=== PATIENT | female | born 1955 | race Caucasian/White ===

== ENCOUNTER 2019-03-17 05:33 | Observation (INO) ==
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
[~2019-03-17 05:33] MED LIST: CEFAZOLIN 1000MG 1,000 MG/7.5 ML SYR IV SCH; LR 15ML/HR IV SCH
[2019-03-17] MEDS ORDERED: LR 15ML/HR IV SCH (06:00)
[2019-03-17] MEDS ORDERED: LACTATED RINGER'S 1,000 ML IV SCH ×2 (06:00→15:00)
[2019-03-17] MEDS ORDERED: CEFAZOLIN 1000MG 1,000 MG/7.5 ML SYR IV SCH (06:00)
[2019-03-17 06:07] LABS: Hematocrit (blood only) 38.7 % (37-47); Mean Corpuscular Volume 91.5 fL (80-100); Mean Platelet Volume 10.9 fL (7.4-10.4); Platelet Count 253 K/uL (130-400); RDW Coefficient of Variation 14.1 % (11.5-14.5); RDW Standard Deviation 46.3 fL (36.4-46.3); Red Blood Count 4.23 M/uL (4.2-5.4); White Blood Count 8.38 K/uL (4.8-10.8)
[2019-03-17 06:12] LABS: Mean Corpuscular Hgb Conc 33.6 g/dL (32-36)
[2019-03-17 06:25] LABS: BUN Creatinine Ratio 27.6 (10-20); Calcium 8.6 mg/dl (8.5-10.1); Creatinine Clr Calc Pharmacy 55.3 ml/min; Est GFR (African American) 69.9; Est GFR (Non-African American) 60.3; Magnesium 1.4 mg/dl (1.8-2.4)
[2019-03-17] MEDS ORDERED: BUPIVACAINE/EPINEPHRINE 0.5% 1:200,000 1.8 ML CARP ONE (06:53)
[2019-03-17] MEDS ORDERED: fentaNYL citrate 100 MCG/2 ML VIAL ONE (06:58)
[2019-03-17] MEDS ORDERED: MIDAZOLAM HCL 1 MG/ML 2ML VIAL ONE (06:58)
--- NOTE | 2019-03-17 07:03 | History & Physical Bridge Note ---
Date of Service March 17, 2019 History & Physical Bridge Note I have examined the patient, reviewed the History & Physical and in the interval since the performance of the History & Physical I have noted the following changes of clinical significance: no changes noted As expected her Mag and K are low. We will be taking an EKG pre-op to obtain a baseline. If baseline is accepable to anesthesia we will plan the surgery. Discussed home pain meds get N/V with oral pain meds on chronic morphine for pain control.
[2019-03-17] MEDS ORDERED: ATROPINE SULFATE 0.1 MG/ML 10ML SYR IV PRN (07:06)
[2019-03-17] MEDS ORDERED: ePHEDrine sulfate 50 MG/ML AMP IV PRN (07:06)
[2019-03-17] MEDS ORDERED: ONDANSETRON INJ 2 MG/ML 2 ML VIAL IV PRN (07:06)
[2019-03-17] MEDS ORDERED: CHLORHEXIDINE GLUCONATE 0.12% 480 ML ONE (07:29)
[2019-03-17] MEDS ORDERED: GLYCOPYRROLATE 0.2 MG/ML VIAL ONE (07:53)
[2019-03-17] MEDS ORDERED: ROCURONIUM BROMIDE 10 MG/ML 5 ML VIAL ONE (07:53)
[2019-03-17] MEDS ORDERED: DEXAMETHASONE SOD INJ 4 MG/ML VIAL ONE (07:53)
[2019-03-17] MEDS ORDERED: ONDANSETRON INJ 2 MG/ML 2 ML VIAL ONE (07:53)
[2019-03-17] MEDS ORDERED: NEOSTIGMINE METHYLSULFATE 5 MG/5 ML SYR ONE (07:53)
--- NOTE | 2019-03-17 09:06 | Post Operative Brief Note ---
Immediate Post Op Note v1 Date of Surgery March 17, 2019 Pre & Post Diagnosis Operation Date: 03/17/19 07:15 Pre-Op Diagnosis: Osteoporosis Severe, 15 Infected Teeth Oral sinus fistula upper right side Post-Op Diagnosis: Osteoporosis Severe, 15 Infected Teeth oral sinus fistula upper right side Procedure Operation Date: 03/17/19 07:15 Actual Procedures p Removal of 15 Infected Teeth, Alveoloplasty Closure of large oral sinus fistula and opening upper right (Not Applicable) - Juventino Barnes DMD Surgeon Juventino Barnes DMD Insurance Agent none Estimated Blood Loss 15 Findings Consistent with Post-Op Diagnosis
[2019-03-17] MEDS ORDERED: MoRPHine SULFATE 4 MG/ML 1 ML CARP\\VIAL IV PRN (09:13)
[2019-03-17] MEDS ORDERED: ACETAMINOPHEN 325 MG TAB PO PRN (09:13)
[2019-03-17] MEDS ORDERED: ONDANSETRON 4 MG TAB PO PRN (09:20)
[2019-03-17] MEDS ORDERED: IBUPROFEN 800 MG TAB PO PRN (09:20)
[2019-03-17] MEDS ORDERED: MoRPHine SULFATE IR 15 MG TAB (IMMEDIATE RELEASE) PO PRN (09:20)
[2019-03-17] MEDS: fentaNYL citrate 100 MCG/2 ML VIAL IV PRN ×4 (09:25→10:00)
[2019-03-17] MEDS ORDERED: fentaNYL citrate 100 MCG/2 ML VIAL IV STA (10:10)
--- NOTE | 2019-03-17 10:25 | Anesthesiology Progress Note ---
Date of Service March 17, 2019 Anesthesia Post Procedure Vital Signs Vital Signs: Temp Pulse Pulse Resp BP BP Pulse Ox 03/17/19 10:15 49 L 12 114/73 97 03/17/19 10:05 49 L 12 148/81 H 99 03/17/19 09:55 47 L 12 144/72 H 99 03/17/19 09:45 50 L 16 161/87 H 98 03/17/19 09:35 52 L 16 171/81 H 100 03/17/19 09:25 57 L 15 156/87 H 100 03/17/19 09:15 97.5 F L 81 13 158/79 H 99 03/17/19 06:15 97.7 F 59 L 18 150/89 H 99 Pain Intensity Mouth: Pain Intensity: 4 Transfer of Care Handoff Completed per policy Notes Mental Status: alert / awake / arousable and participated in evaluation Patient Amnestic to Procedure: Yes Nausea / Vomiting: adequately controlled Pain: adequately controlled Airway Patency, RR, SpO2: stable & adequate BP & HR: stable & adequate Hydration State: stable & adequate Anesthetic Complications: no major complications apparent and Pt Satisfied with anesthetic care
[2019-03-17] MEDS ORDERED: MoRPHine SULFATE 2 MG/ML CARP ONE (11:03)
[2019-03-17] MEDS: MoRPHine SULFATE 2 MG/ML CARP IV PRN ×2 (11:04→15:03)
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
[2019-03-17] MEDS ORDERED: HYDROmorphone INJ 1 MG/ML SYRINGE IV PRN (15:06)
[2019-03-17] MEDS ORDERED: HydrALAZINE HCL 20 MG/ML VIAL IV PRN (15:07)
[2019-03-17] MEDS: MAGNESIUM CHLORIDE 64MG DELAYED REL TAB PO SCH ×2 (17:47→21:27)
[2019-03-17] MEDS: KETOROLAC 30 MG/ML VIAL IV PRN (17:56)
[2019-03-17] MEDS: D5W AND 1/2NSS + 20MEQ KCL 20 MEQ/1,000 ML BAG IV SCH (17:57)
[2019-03-17] MEDS: CLINDAMYCIN 900 MG in DEXTROSE 5% 100 ML IV SCH (17:57)
[2019-03-17] MEDS: ONDANSETRON INJ 2 MG/ML 2 ML VIAL IV PRN ×2 (17:57→21:37)
[2019-03-17] MEDS: CEFAZOLIN 1000MG 1,000 MG/7.5 ML SYR IV SCH (17:58)
[2019-03-17] MEDS: POTASSIUM CHLORIDE / WTR 10 MEQ/100 ML PLCT IV SCH ×4 (17:58→23:42)
[2019-03-17] MEDS ORDERED: BusPIRone 15 MG TAB PO SCH (18:00)
[2019-03-17] MEDS: MAGNESIUM SULFATE / D5W 1 GM/100 ML BAG IV SCH ×2 (18:44→20:02)
[2019-03-17] MEDS: OXYCODONE/ACETAMINOPHEN 5mg/325mg TAB PO PRN (19:27)
[2019-03-17] MEDS: MoRPHine SULFATE CR 15 MG TABCR PO SCH (21:26)
[2019-03-17] MEDS: cloNIDine HCl 0.1 MG TAB PO SCH (21:26)
[2019-03-17] MEDS: BUSPIRONE HCL 7.5 MG TAB PO SCH (21:26)
[2019-03-17] MEDS: ROPINIROLE HCL 1 MG TABLET PO SCH (21:26)
[2019-03-17] MEDS: SUCRALFATE 1 GM TAB PO SCH (21:26)
[2019-03-17] MEDS: TOPIRAMATE 100 MG TAB PO SCH (21:27)
[2019-03-17] MEDS: SERTRALINE HCL 100 MG TABLET PO SCH (21:27)
[2019-03-17] MEDS: MONTELUKAST SODIUM 10 MG TABLET PO SCH (21:27)
[2019-03-17] MEDS: SIMVASTATIN 20 MG TAB PO SCH (21:27)
[2019-03-18] MEDS: CLINDAMYCIN 900 MG in DEXTROSE 5% 100 ML IV SCH ×3 (01:50→17:26)
[2019-03-18] MEDS: CEFAZOLIN 1000MG 1,000 MG/7.5 ML SYR IV SCH ×2 (01:50→09:28)
[2019-03-18] MEDS ORDERED: Nursing to Pharmacy Communication ONE (03:21)
[2019-03-18] MEDS: KETOROLAC 30 MG/ML VIAL IV PRN ×3 (05:00→20:07)
[2019-03-18] MEDS: OXYCODONE/ACETAMINOPHEN 5mg/325mg TAB PO PRN ×3 (07:39→23:55)
[2019-03-18 08:26] LABS: Hematocrit (blood only) 32.1 % (37-47); Hemoglobin 10.6 g/dL (12.0-16.0); Mean Corpuscular Volume 92.2 fL (80-100); Platelet Count 186 K/uL (130-400); RDW Coefficient of Variation 14.5 % (11.5-14.5); RDW Standard Deviation 49.1 fL (36.4-46.3); Red Blood Count 3.48 M/uL (4.2-5.4); White Blood Count 8.16 K/uL (4.8-10.8)
[2019-03-18 09:00] LABS: Albumin Level 2.9 gm/dl (3.4-5.0); Calcium 7.6 mg/dl (8.5-10.1); Creatinine Clr Calc Pharmacy 57.2 ml/min; Est GFR (African American) 74.4; Est GFR (Non-African American) 64.2; Potassium 3.1 mmol/L (3.5-5.1)
[2019-03-18 09:03] LABS: Bilirubin,Total 0.2 mg/dl (0.2-1); Globulin 2.8 gm/dl (2.5-4.0); Total Protein 5.7 gm/dl (6.4-8.2)
[2019-03-18] MEDS: ASPIRIN 81 MG ECTAB PO SCH (09:36)
[2019-03-18] MEDS: cloNIDine HCl 0.1 MG TAB PO SCH ×2 (09:37→20:37)
[2019-03-18] MEDS: SUCRALFATE 1 GM TAB PO SCH ×2 (09:37→20:36)
[2019-03-18] MEDS: BUSPIRONE HCL 7.5 MG TAB PO SCH ×3 (09:37→20:36)
[2019-03-18] MEDS: MAGNESIUM CHLORIDE 64MG DELAYED REL TAB PO SCH ×4 (09:38→20:37)
[2019-03-18] MEDS: TOPIRAMATE 100 MG TAB PO SCH ×2 (09:38→20:38)
[2019-03-18] MEDS: SERTRALINE HCL 100 MG TABLET PO SCH ×2 (09:39→20:39)
[2019-03-18] MEDS: MoRPHine SULFATE CR 15 MG TABCR PO SCH ×2 (09:43→20:41)
[2019-03-18] MEDS ORDERED: POTASSIUM CHLORIDE 20 MEQ TABCR PO STA (09:44)
[2019-03-18] MEDS: D5W AND 1/2NSS + 20MEQ KCL 20 MEQ/1,000 ML BAG IV SCH ×2 (09:50→20:34)
[2019-03-18] MEDS: ONDANSETRON INJ 2 MG/ML 2 ML VIAL IV PRN ×2 (09:55→20:10)
--- NOTE | 2019-03-18 11:11 | Surgery Progress Note ---
Date of Service March 18, 2019 Subjective Post op day # 1 doing very well today, no bleeding noted, minimal swelling, PO improved, pain controlled Reviewed home care and diet. RTC March 27 2019 for follow up We decided to keep for 23 hrs due to her pain management and electrolyte imblance. PO now improved, still somewhat sleepy Over all nice progress OK for D/C today Results & Data Vital Signs (Past 12 Hours) Vital Signs Temp Pulse Resp BP Pulse Ox 03/18/19 07:18 37.3 C 61 16 100/62 96 03/18/19 03:35 37.5 C 68 16 99/63 L 96 03/17/19 23:19 77 94/59 L
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
[2019-03-18] MEDS ORDERED: MAGNESIUM OXIDE 400 MG TAB PO ONE (12:04)
[2019-03-18] MEDS: ROPINIROLE HCL 1 MG TABLET PO SCH (20:37)
[2019-03-18] MEDS: MONTELUKAST SODIUM 10 MG TABLET PO SCH (20:37)
[2019-03-18] MEDS: SIMVASTATIN 20 MG TAB PO SCH (20:39)
[2019-03-19] MEDS: CLINDAMYCIN 900 MG in DEXTROSE 5% 100 ML IV SCH ×2 (01:49→08:54)
[2019-03-19] MEDS: KETOROLAC 30 MG/ML VIAL IV PRN ×2 (03:54→17:06)
[2019-03-19] MEDS: D5W AND 1/2NSS + 20MEQ KCL 20 MEQ/1,000 ML BAG IV SCH (07:04)
[2019-03-19] MEDS: SUCRALFATE 1 GM TAB PO SCH (07:06)
[2019-03-19] MEDS: cloNIDine HCl 0.1 MG TAB PO SCH (07:06)
[2019-03-19] MEDS: SERTRALINE HCL 100 MG TABLET PO SCH (07:06)
[2019-03-19] MEDS: BUSPIRONE HCL 7.5 MG TAB PO SCH ×2 (07:06→12:54)
[2019-03-19] MEDS: ASPIRIN 81 MG ECTAB PO SCH (07:06)
[2019-03-19] MEDS: MAGNESIUM CHLORIDE 64MG DELAYED REL TAB PO SCH ×2 (07:07→12:54)
[2019-03-19] MEDS: TOPIRAMATE 100 MG TAB PO SCH (07:07)
[2019-03-19 07:09] LABS: Hematocrit (blood only) 30.7 % (37-47); Hemoglobin 9.9 g/dL (12.0-16.0); Mean Corpuscular Hgb Conc 32.2 g/dL (32-36); Mean Corpuscular Volume 93.3 fL (80-100); Mean Platelet Volume 10.5 fL (7.4-10.4); Platelet Count 165 K/uL (130-400); RDW Coefficient of Variation 14.6 % (11.5-14.5); RDW Standard Deviation 49.9 fL (36.4-46.3); Red Blood Count 3.29 M/uL (4.2-5.4); White Blood Count 6.72 K/uL (4.8-10.8)
[2019-03-19] MEDS: MoRPHine SULFATE CR 15 MG TABCR PO SCH (07:09)
[2019-03-19 07:54] LABS: Albumin Globulin Ratio 0.9 (0.9-2); Albumin Level 2.6 gm/dl (3.4-5.0); BUN Creatinine Ratio 11.7 (10-20); Bilirubin,Total 0.2 mg/dl (0.2-1); Calcium 7.8 mg/dl (8.5-10.1); Creatinine Clr Calc Pharmacy 67.9 ml/min; Est GFR (African American) 91.6; Total Protein 5.6 gm/dl (6.4-8.2)
[2019-03-19] MEDS: OXYCODONE/ACETAMINOPHEN 5mg/325mg TAB PO PRN ×2 (08:06→15:31)
[2019-03-19] MEDS ORDERED: POTASSIUM CHLORIDE 20 MEQ TABCR PO ONE (09:40)
--- NOTE | 2019-03-19 10:35 | Operative Report ---
DATE OF OPERATION: 03/17/2019 ADMITTING DIAGNOSES: Chronically inflamed lower anterior segment secondary to chronic osteomyelitis and severe periodontally involved teeth as well as a dental neglect with multiple fractured and abscessed teeth. POSTOPERATIVE DIAGNOSES: Chronically inflamed lower anterior segment secondary to chronic osteomyelitis and severe periodontally involved teeth as well as a dental neglect with multiple fractured and abscessed teeth. OPERATION: Surgical removal of 15 carious teeth of the upper and lower jaw as well as debridement of exposed infected bone of lower anterior area with a chronic draining osteomyelitis. DESCRIPTION OF PROCEDURE: After this patient was cleared to undergo a general anesthetic, she was brought down to the Operating Room and placed under general anesthesia via nasotracheal intubation. After adequate anesthesia was obtained, the patient was prepped and draped in the usual manner for the removal of teeth and for doing debridement of an infected area of the jaw. At this time, a time-out was taken to ensure that we had the appropriate patient, that the appropriate equipment and antibiotics were given and that the procedures were confirmed. Once everything was confirmed, the procedure began. Facial dressings were applied around the area. Sterile drapes were placed. The operation now began. I gave local anesthesia to the maxilla both on the palatal and facial side as well as bilateral alveolar blocks. This was done to gain local anesthetic to the lower jaw. I was able to do a much better exam once the patient was asleep because of the fact that she was so sensitive to her teeth and especially me pulling down on her lower lip. I noted that she had the following upper teeth and that would be tooth number 3, 4, 6, 8, 9, 11 and 14. Most of these teeth were chronically inflamed with draining fistula and were all fractured with decay. At this time with the use of a 15 blade, a mucoperiosteal incision was created from the right tuberosity region across the maxilla to the left tuberosity region. Now using a periosteal elevator, the mucoperiosteal tissue was reflected to expose the whole alveolar process. At this time with the use of dental forceps and rongeurs, I was able to remove the 7 teeth that were on the upper jaw. Again, that was tooth number 3, 4, 6, 8, 9, 11 and 14. Once these teeth were removed, I then used a curette and cleaned out the sockets. Now using rongeurs as well as drill, I was able to recontour the irregular alveolar ridge and performed an alveoplasty on both right and left sides. Once this was done, I irrigated the areas. I then used a small scissor to close up the tissues and started closure on the left side. Closure was obtained in the usual manner and we actually had a very nice smooth ridge with good closure. I noticed on the right side once I removed tooth numbers 3 and 5 that there was a rather large opening into the maxillary sinus. I expected this given the radiographic appearance of the relationship of the tooth to the sinus. At this time, I used a rongeur and rotary instruments to ensure that I have good smooth bony margin in this area. I vigorously curetted the sockets and then irrigated into the maxillary sinus. Surprisingly with all the chronic dental infection, the maxillary sinus was relatively clear. There was no drainage or pus from the sinus. At this time, my goal was to obtain primary closure of the large sinus opening. To do so, I reflected the mucoperiosteal flap facially on the right side. I then extended the mucoperiosteal flap by making a releasing incision in the tuberosity region. I did the same thing on the palatal aspect to get some mobility of the very dense palatal tissue. Now using a rongeur, I was able to trim some of the lingual bone plate to enable me to create a nice U-shaped ridge form. A small piece of Surgicel was placed over the sinus opening and then I was able to incise the periosteum to get more closure. Once this was done, I was able to advance the flap over the bone and the opening into the sinus. At this time, using a combination of a horizontal and vertical mattress sutures, I was able to gain primary closure of the large sinus opening. Once this was done, I then completed the closure of the upper mucosal flap with a 3-0 chromic suture until a watertight closure was obtained. I now turned my attention to the lower jaw. The lower jaw was more problematic. The teeth involved in the lower jaw were those of teeth numbers [address] to tooth number 28. There were 8 teeth. However, teeth numbers 22 to number 27 were quite loose and had what I would consider to be acute necrotic gingival stomatitis around the teeth. To complicate matters, the gingival tissue in this area from the chronic infection was completely denuded. I was literally looking at the exposed bone of the alveolar process holding this segment of 6 teeth into position. There was a chronic osteomyelitis as the bone was quite necrotic. Nevertheless, with the use of my 15 blade, I was able to create a large mucoperiosteal flap going from the area of the lower left molar area which was extracted many years ago around the necks of all the remaining anterior teeth and extending it to be the right side over the alveolar ridge. Now reflecting the tissue, I was able to get good exposure of the whole alveolar process. I now removed the teeth from tooth number 21 to tooth number 28. In removing the teeth between number 22 and 27, the whole chunk of necrotic alveolar bone was attached to the infected teeth. Once the teeth were removed, I then used a drill with a round bur and recontoured the alveolar process to make it even and do a bony reduction of the necrotic bone until good bony bleeding was obtained. Once I anatomically recontour the ridge and was able to get a very nice bridge anatomy, I then curetted the sockets and was certain that all of the necrotic bone and debris was removed. At this time I trimmed the tissue to remove all of the tissue that had the acute gingival stomatitis associated with it and then once again advanced the mucoperiosteal flap by incising the periosteum to get good closure over the bone. Once this was done, I was able to free up the facial aspect of the flap and advanced it. Great care was taken to avoid any injury to the neurovascular bundles, which were noted on both the right and left sides. At this time because of the bony reduction and release of the periosteum, I had good soft tissue closure over the exposed bone. When all was said and done, we had primary closure with relatively good ridge form. It is quite possible that this lady may need a vestibuloplasty in the future, but for now, good closure was obtained and we will allow healing to occur before making any other plans. At this time, the case was completed. All sutures were in good position. Hemostasis was intact. I now removed the oropharyngeal throat packs and suction the oral cavity. An orogastric tube was placed to evacuate any material in the stomach. At this time, bilateral gauze dressings were applied and the patient was allowed to recover in the usual manner. Upon full recovery, the patient was taken to the Recovery Room. She was breathing in satisfactory condition and her EKGs were stable with no cardiac arrhythmias. While in the Recovery Room, the patient was doing quite well. She had some oral bleeding, which was expected, but her main complaint was that of just being extremely tired. We discussed this with the patient telling her that was quite normal to be this way after the anesthesia. The plan was to have her go to the outpatient area and make plans for discharge. However, after approximately 3 hours in the outpatient area, the nurse called me and informed me that the patient was not ready to be discharged. She had a lot of trouble swallowing pills. She was not taking fluids by mouth and was in extreme amount of pain and was still very sleepy. She was not able to get out of bed yet. Because of this, we decided to admit her for 23-hour observation and see how she does for possible discharge on 03/18/2019. The operation was then removal of 15 teeth, closure of a large oral sinus opening, alveoplasty of the upper and lower jaw, advancement flaps of the upper and lower jaw for soft tissue closure. I attest to the content of the Intraoperative Record and any orders documented therein. Any exceptions are noted below. LORRAINED
[2019-03-19 15:49] LABS: BUN Creatinine Ratio 7.4 (10-20); Calcium 8.2 mg/dl (8.5-10.1); Creatinine Clr Calc Pharmacy 57.8 ml/min; Est GFR (African American) 75.4; Potassium 4.1 mmol/L (3.5-5.1)
--- NOTE | 2019-03-19 16:41 | Discharge Summary ---
Date of Service March 19, 2019 Admission HPI Per Admitting Provider This patient was referred to me because of severe dental issues from infected and pain from her teeth. She has many medical issues that are addressed in the medical clearence from [facility]. We will follow the Mag and K levels pre and post op with EKG monitoring post op. Her CC is the infections from her teeth which resulted in exposed bone and osteomyelitis. My plan is to remove all the remaining teeth, alveoplasty and debridment of the infected and exposed bone. This will be done under [facility] and we will arrange for out patient vs 23 hr stay pending how she does after the surgery given all her problems after anesthesia in the past. I reviewed the oral surgery and all risks=pain, swelling, infection, bleeding, sinus, need for revision, need for dentures, home care, diet, medical follow up. Mrs. Kruger understands and now that we have medical clearence and I discussed the management with her physician we will plan surgery Mar 18 2019 at [facility] with [facility]. Admission Exam Per Admitting Provider Physical Exam: deferr to current H&P, Oral exam=poor dental condition, carious and infected teeth, exposed bone and osetomyelitis anterior lower jaw ENMT: Mouth: + malodorous breath, + gingival abnormality, + dental caries, + dental restorations, + poor dentition, + chipped teeth and + loose teeth Mallampati Class: II Throat: uvula midline Neck: trachea midline, no thyromegaly Respiratory: normal respiratory effort, lungs clear to auscultation Cardiovascular: please see current H&P Principal Diagnosis Osteomyelitis/Dental Infection s/p tooth extraction Discharge Exam General: Resting comfortably in no apparent distress HEENT: NC/AT; PERRLA with EOMI; Very poor dentition, sutures intact without evidence of acute bleeding. Neck: Supple and nontender Cardiac: RRR Lungs: CTA bilaterally Abdomen: Bowel normoactive X 4; Nontender to palpation Extremities: Warm. No edema present Neuro: No focal weakness Skin: No rash Discharge Data Allergies Allergy/AdvReac Type Severity Reaction Status Date / Time iodine Allergy Mild HIVES-1 Verified 03/17/19 06:06 TIME RXN Consultations 03/17/19 13:57 Consult Hospitalist Stat 03/17/19 14:56 Consult Case Management - Discharge Planning Routine Procedures Performed Operation Date: 03/17/19 07:15 Actual Procedures p Removal of 15 Infected Teeth, Alveoloplasty(Not Applicable) - Juventino Barnes, DMD Hospital Course (1) S/P tooth extraction: Admitted to med/surg; hospital team was consulted and completed discharged summary. Dr. Barnes was the primary provider during this admission. Received Ancef pre-op and Clindamycin IV q8hr post op. Will complete course of Amoxicillin at home following discharge. S/p removal of 15 teeth, alveoplasty of the mouth, debridement of necrotic bone anterior symphysis of lower jaw due to osteomyelitis and abscessed teeth. Received D5 + 0.45% NS + KCl due to poor PO intake. On chronic opioids at home (MS Contin 30 mg BID with MSIR 30 mg BID prn) -- continued these medications as inpt along with Tylenol, Percocet prn. Pt. should avoid NSAIDs due to h/o PUD. Prescription was provided for Percocet at discharge by Dr. Barnes. She was advised to continue MS Contin 30 mg BID scheduled with Percocet prn. We also discussed the importance of avoiding large doses of narcotics at home and the maximum dose of Tylenol. (2) Dental infection: See above. (3) Osteomyelitis: See above. (4) HTN (hypertension): Continued Clonidine 0.2 mg BID. Home amiloride was ordered but pt. did not receive as med was non-formulary. BP was low on day of discharge -- instructed her to hold Amiloride at home and continue Clonidine. F/u with PCP in 1-2 weeks. (5) HLD (hyperlipidemia): Continued statin as prescribed. (6) GERD (gastroesophageal reflux disease): Continued Ranitidine BID. (7) Peptic ulcer disease: Follows with Dr. Quinn. Avoid NSAIDs. No evidence of acute bleeding during this admission. (8) CECIL (generalized anxiety disorder): Continued home meds. (9) Depression: Continued Zoloft, Buspar as prescribed. Follows with psych as outpatient. (10) Asthma: Stable, no evidence of acute exacerbation. (11) TIA (transient ischemic attack): History of, continuing aspirin. (12) Seizure disorder: Continued Topamax 200 mg BID. (13) Migraine: Continued Erenumab 140 mg subcu inj monthly & Topamax as prescribed. (14) Hypokalemia: Potassium was low throughout admission - likely related to high dose of home Topamax. K level improved to >4 on day of discharge. She was instructed to take KCl 40 mEq at home. (15) Hypomagnesemia: Mag was replaced as needed during this admission. Will resume home mag oxide QID. (16) Acute blood loss anemia: Hemoglobin was trending down likely related to intra op blood loss. (17) DVT prophylaxis: SCDs, TEDs. Pharmacologic ppx was held due to high bleeding risk. Stable for discharge to home on 03/19/19. Will need close follow up with PCP in 1- 2 weeks and f/u with oral surgeon. Total Time Total Time Spent Total Time Spent (In Minutes): >30 minutes Total Time Includes: Examination of the Patient, Discharge Planning, Medication Reconciliation, Communication With Other Providers and Other Discharge Plan Discharge Items Patient Disposition: Home - Self-Care Reason For Visit: Osteoporosis Severe, 15 Infected Teeth Discharge Diagnosis: S/p extractions of abscessed teeth, closure of oral - sinus opening, alveoplasty to debride exposed bone Discharge Goals: Decrease discomfort and Improve function Activity: As commented below Activity Comment: Take it easy for the next few days, advance activities as tolerated Lifting: None Bathing: No limitations Exercise/Sports: Wait until after follow-up appointment Driving/Machine Use: Resume 3 days after discharge Driving/Machine Use Comment: No driving while on the pain meds Non-emergency contact: Surgeon Call non-emergency contact if: your pain is not controlled, your pain is unusual for you, your temperature is above 101.5, your wound has increased redness, your wound has increased drainage and your wound pain has increased Follow-up/Referrals: ADELA SHARP [Other] Juventino Barnes, CATHIE [Physician] - Diet: Full liquid Diet Comment: full or clear liquid diet Addtl Provider Instructions: 1. Dental Infection/Osteomyelitis s/p tooth extraction * Please continue instructions for dental care as noted below. * Please take Amoxicillin 500 mg every 8 hours. We recommend taking a daily probiotic in the setting of antibiotics -- this can be purchased over the counter. * Continue pain control as noted below: - Percocet every 4-6 hours for moderate to severe pain. DO NOT EXCEED THE MAXIMUM DOSE OF TYLENOL PER DAY (4,000 MG) - Continue home Morphine extended release 30 mg every 12 hours scheduled. - Please avoid NSAIDs, including Ibuprofen, Motrin, Aleve, etc in setting of peptic ulcer disease. - Continue to follow with pain management as scheduled. * Please contact your oral surgeon with any questions/concerns. 2. Lab work abnormalities * Your potassium levels have been low during this admission -- please take Potassium 40 mEq daily at home. This can be purchased over the counter. * Continue magnesium oxide four times daily for magnesium supplementation. * It is recommended to have follow up lab work. Labs can be ordered by your primary care provider if necessary. 3. Low blood pressure * Your blood pressure has been low during this admission. * Please continue Clonidine as prescribed. * Please hold home Amiloride following discharge. 4. Please schedule an appointment with your primary care provider in 7-10 days to discuss this hospital admission. ADDITIONAL ACTIVITY RECOMMENDATIONS: *Rinse your after every meal. It is very important to keep your mouth clean to prevent infection. SPECIAL CARE INSTRUCTIONS: * Keep ice on the side of your face for the next 24 to 36 hours. This will help keep the swelling down. * After 36 hours, apply heat (hot water bottle or heating pad) for the next two days, as often as possible. * Tomorrow start rinsing your mouth with 1/2 teaspoon salt in 8 ounces warm water. This rinse should be used every 4-6 hours. * You may experience slight nausea. To prevent this, never take your medication on an empty stomach. If nauseated, take small sips of ray rosy until you feel better; then you may start on applesauce and toast. * Some swelling is common. It should gradually decrease within 4-5 days. * A certain amount of bleeding is to be expected. It is often possible to control mild oozing by placing folded gauze over the area and biting down for 30 minutes. If you are unable to control excessive bleeding, call your doctor at * You may experience some discomfort for a few days. If pain or swelling increases, call your doctor immediately at Prescriptions: New potassium chloride 20 mEq tablet extended release 40 meq PO DAILY Qty: 60 RF: 0 oxycodone-acetaminophen [Percocet] 7.5-325 mg tablet 1 tab PO Q6H PRN (Reason: moderate to severe pain) Qty: 1 RF: 0 Probiotic 3 billion cell capsule 3,000 mmu cells PO DAILY Qty: 1 RF: 0 amoxicillin 500 mg capsule 500 mg PO Q8H Qty: 21 RF: 0 Continued sucralfate [Carafate] 1 gram Tablet 1 g PO BID RF: 0 ondansetron HCl [Zofran] 4 mg Tablet 4 mg PO QID PRN (Reason: Nausea) RF: 0 sertraline [Zoloft] 100 mg Tablet 100 mg PO BID RF: 0 aspirin [Aspir-81] 81 mg Tablet,Delayed Release (Dr/Ec) 81 mg PO DAILY RF: 0 clonidine HCl 0.2 mg Tablet 0.2 mg PO BID RF: 0 simvastatin 20 mg Tablet 20 mg PO PM RF: 0 ropinirole [Requip] 0.5 mg Tablet 1 mg PO HS RF: 0 ranitidine HCl 150 mg Tablet 150 mg PO BID RF: 0 montelukast [Singulair] 10 mg Tablet 10 mg PO PM RF: 0 topiramate [Topamax] 200 mg Tablet 200 mg PO BID RF: 0 buspirone 15 mg Tablet 15 mg PO TID RF: 0 magnesium oxide 84.5 mg (140 mg) Capsule 2 tab PO QID RF: 0 cholecalciferol (vitamin D3) 50,000 unit Tablet 50,000 unit PO WK RF: 0 morphine 30 mg Tablet,Oral Only,Extnd Release 30 mg PO Q12H RF: 0 Aimovig Autoinjector 140 mg/mL Auto-Injector 140 mg SUBCUT MONTHLY RF: 0 Discontinued ibuprofen 800 mg Tablet 800 mg PO TID PRN (Reason: Pain) RF: 0 amiloride 5 mg Tablet 2.5 mg PO QAM RF: 0 morphine 30 mg Tablet 30 mg PO Q12H PRN (Reason: Pain) RF: 0 Stand-Alone Forms: [employer] [facility] [employer], Opioid Pain Management [employer]/Other Patient Handouts: Dental Abscess, Surgery Prevent DVT After, ED Dental Abscess Facial Cellulitis Discharge Orders: Discharge Order (Routine); Ordered 03/19/19 Ordered By: Laura Calles Admission Data Admit Date/Time: 03/17/19 13:52 Attending Provider: Juventino Barnes Admit Provider: Juventino Barnes Primary Care Provider: Adela Sharp Other Providers: Ezequiel Smith Natalie B Service: Surgical Services Other Interventions: Discharge Summary Assessment (RN) Last Done: 03/19/19 16:27 Pending Studies at Discharge: No DC Date/Time DO NOT enter until pt leaves facility: 03/19/19 17:50 Supervising Physician Co-Signing Physician Notes PA Supervision Note: I did not personally see or examine the patient today, but I verified all hunter points of FRANSICO Calles's assessment and plan with the following exceptions/additions: Pt was discharged by Hospitalist service as a courtesy for Dr. Barnes. Doing well, po intake improved, electrolyte disturbances were corrected. She apparently has a long h/o hypokalemia nad hypomagnesemia and is followed for this by her PCP. Follow up closely for repeat labs and BP check with PCP recommended. Finish out antibiotics.
[2019-03-23] MEDS ORDERED: ERGOCALCIFEROL 50,000 UNITS CAP PO SCH (09:00)
== END 2019-03-19 17:50 | disposition home or self-care (01) ==
LOC: ASU 05:33 → 3W 05:33